=== PATIENT | female | born 1940 | race Caucasian/White ===

== ENCOUNTER 2023-10-01 14:52 | Inpatient (IN) | payer MEDICARE, OTHER ==
[~2023-10-01] VITALS: Ht 157.5 cm; Wt 95.7 kg
[2023-10-01 16:26] LABS: BASOPHILS % (AUTO) 0.5 % (0.0-2.0); EOSINOPHILS % (AUTO) 0.3 % (0.0-7.0); HEMOGLOBIN 14.5 g/dL (10.9-14.3); LYMPHOCYTES # (AUTO) 0.6 K/uL (0.8-4.8); LYMPHOCYTES % (AUTO) 6.8 % (20.5-51.5); MEAN CORPUSCULAR HEMOGLOBIN 30.2 uug (24.7-32.8); MEAN CORPUSCULAR HGB CONC 32 g/dL (32.3-35.6); MEAN CORPUSCULAR VOLUME 94.1 fL (75.5-95.3); MONOCYTES # (AUTO) 0.3 K/uL (0.1-1.30); MONOCYTES % (AUTO) 3.9 % (0.0-11.0); NEUTROPHILS # (AUTO) 7.6 K/uL (1.8-8.9); NEUTROPHILS % (AUTO) 88.5 % (38.5-71.5); PLATELET COUNT (AUTO) 133 K/uL (179-408); RED BLOOD CELL COUNT(AUTO) 4.78 MIL/uL (3.63-4.92); RED CELL DISTRIBUTION WIDTH 16.9 % (12.3-17.7); WHITE BLOOD COUNT (AUTO) 8.6 K/uL (3.8-11.8)
[2023-10-01 16:40] LABS: DIFFERENTIAL COMMENT 1
[2023-10-01 16:44] LABS: CALCIUM 9.2 mg/dL (8.5-10.1); CARBON DIOXIDE 28 mmol/L (21-32); CHLORIDE 104 mmol/L (98-107); CREATININE 1.6 mg/dL (0.6-1.3); GLUCOSE 275 mg/dL (74-106); POTASSIUM 4.3 mmol/L (3.5-5.1); SODIUM SERUM 143 mmol/L (136-145); UREA NITROGEN, BLOOD 33 mg/dL (7-18)
[2023-10-01 16:47] LABS: ABG BASE EXCESS 4.9 mmol/L (-2.0-2.0); ABG HCO3 30.1 mmol/L (22.0-26.0); ABG PCO2 45.9 mmHg (35.0-48.0); ABG PH 7.434 (7.340-7.440); ABG PO2 98.3 mmHg (75.0-100.0); ABG SITE RIGHT RADIAL; ABG TOTAL HEMOGLOBIN 15.3 G/dL (12.0-16.0); AaDO2 97.6 mmHg; COHb 0.8 % (0.0-3.9); MetHb 0.1 % (0.0-1.5); O2Hb 96.4 % (94.0-97.0)
[2023-10-01 16:52] LABS: *BILIRUBIN,URIN NEGATIVE (NEGATIVE); *CLARITY,URINE CLOUDY (CLEAR); *COLOR,URINE YELLOW (YELLOW); *KETONES,URINE NEGATIVE (NEGATIVE); *PROTEIN,URINE NEGATIVE (NEGATIVE); *UROBILINOGEN,URINE 0.2 E.U./dl (NORMAL); LEUKOCYTE ESTERASE ,URINE NEGATIVE (NEGATIVE); PH,URINE 5.5 (5.0-8.0)
[2023-10-01 16:52] LABS: ALANINE AMINOTRANSFERASE 78 U/L (14-59); ALKALINE PHOSPHATASE 70 U/L (50-136); ASPARTATE AMINOTRANSFERASE 21 U/L (15-37); BILIRUBIN,DIRECT 0.2 mg/dL (0.0-0.2); BILIRUBIN,TOTAL 0.3 mg/dL (0.2-1.0); LIPASE 45 U/L (16-77); TOTAL PROTEIN, SERUM 6.4 g/dL (6.4-8.2)
[2023-10-01 17:00] LABS: LACTIC ACID 2.1 mmol/L (0.4-2.0)
[2023-10-01 17:01] LABS: *BLOOD, URINE TRACE (NEGATIVE); NITRITE, URINE POSITIVE (NEGATIVE); UGLUCOSE 2+ (NEGATIVE)
[2023-10-01 17:14] LABS: BACTERIA,URINE MODERATE /HPF (NONE SEEN); SQUAMOUS EPITHELIAL CELL,UR FEW /HPF (NONE SEEN)
[2023-10-01] MEDS ORDERED: CEFTRIAXONE 1 G in IV DEXTROSE 5% 50 ML IV ONE (17:30)
[2023-10-01] MEDS ORDERED: CEFTRIAXONE /D5W 50ML IVPB **ER PYXIS IV ONE (17:48)
[2023-10-01] MEDS ORDERED: ONDANSETRON 4 MG/2 ML VIAL IV PRN (18:00)
[2023-10-01] MEDS ORDERED: DEXTROSE 50% 50 ML DISP.SYRIN IV PRN (18:00)
[2023-10-01] MEDS ORDERED: ACETAMINOPHEN 325 MG TABLET PO PRN (18:00)
[2023-10-01] MEDS: BLOOD SUGAR DIAGNOSTIC 1 EACH STRIP VI SCH (21:00)
[2023-10-01] MEDS ORDERED: HEPARIN SODIUM,PORCINE 5,000 UNITS/ML VIAL SQ SCH (21:00)
[2023-10-02 06:48] LABS: BASOPHILS % (AUTO) 0.4 % (0.0-2.0); EOSINOPHILS # (AUTO) 0.1 K/uL (0.0-0.7); EOSINOPHILS % (AUTO) 1.7 % (0.0-7.0); HEMATOCRIT 44.1 % (31.2-41.9); HEMOGLOBIN 14.5 g/dL (10.9-14.3); LYMPHOCYTES # (AUTO) 1.8 K/uL (0.8-4.8); LYMPHOCYTES % (AUTO) 20.6 % (20.5-51.5); MEAN CORPUSCULAR HEMOGLOBIN 30.8 uug (24.7-32.8); MEAN CORPUSCULAR HGB CONC 33 g/dL (32.3-35.6); MONOCYTES # (AUTO) 0.9 K/uL (0.1-1.30); MONOCYTES % (AUTO) 10.3 % (0.0-11.0); NEUTROPHILS # (AUTO) 5.7 K/uL (1.8-8.9); PLATELET COUNT (AUTO) 119 K/uL (179-408); RED BLOOD CELL COUNT(AUTO) 4.69 MIL/uL (3.63-4.92); RED CELL DISTRIBUTION WIDTH 16.7 % (12.3-17.7); WHITE BLOOD COUNT (AUTO) 8.6 K/uL (3.8-11.8)
[2023-10-02 06:55] LABS: CARBON DIOXIDE 30 mmol/L (21-32); CHLORIDE 107 mmol/L (98-107); CREATININE 1.4 mg/dL (0.6-1.3); GLUCOSE 123 mg/dL (74-106); MAGNESIUM 2.6 mg/dL (1.8-2.4); PHOSPHOROUS 3.7 mg/dL (2.5-4.9); POTASSIUM 3.8 mmol/L (3.5-5.1); SODIUM SERUM 146 mmol/L (136-145); UREA NITROGEN, BLOOD 37 mg/dL (7-18)
[2023-10-02 07:06] LABS: DIFFERENTIAL COMMENT 1
[2023-10-02] MEDS ORDERED: ALBU2.5V13 IH (10:10)
[2023-10-02] MEDS ORDERED: ARIP5TAB10 PO (10:10)
[2023-10-02] MEDS ORDERED: DICL75TA5 PO ×2 (10:12→16:47)
[2023-10-02] MEDS ORDERED: DOCU-141 PO (10:12)
[2023-10-02] MEDS ORDERED: DULO60CA45 PO (11:00)
[2023-10-02] MEDS ORDERED: PRED20TA PO (11:00)
[2023-10-02] MEDS ORDERED: OMEP40CA21 PO (11:00)
[2023-10-02] MEDS ORDERED: FURO-151 PO (11:00)
[2023-10-02] MEDS ORDERED: SOLI10TA2 PO (11:00)
[2023-10-02] MEDS ORDERED: FERR-68 PO (11:00)
[2023-10-02] MEDS ORDERED: PANT40TA49 PO (11:00)
[2023-10-02] MEDS ORDERED: ALBU18HF2 IH (11:00)
[2023-10-02] MEDS ORDERED: ONDA4TAB5 PO (11:00)
[2023-10-02] MEDS ORDERED: LINA5TAB PO (11:00)
[2023-10-02] MEDS ORDERED: IPRA0.2S48 NEB (11:00)
[2023-10-02] MEDS ORDERED: APIX5TAB PO (11:00)
[2023-10-02] MEDS ORDERED: BUDE10.2 IH (11:00)
[2023-10-02] MEDS ORDERED: POTA-194 PO (11:00)
[2023-10-02] MEDS ORDERED: EMPA10TA PO (11:00)
[2023-10-02] MEDS ORDERED: GABA-532 PO (11:00)
[2023-10-02] MEDS ORDERED: ZOLP10TA2 PO (11:01)
[2023-10-02 11:30] VITALS: BP 121/79; TEMP 98.1; O2SAT 98
[2023-10-02] MEDS: BLOOD SUGAR DIAGNOSTIC 1 EACH STRIP VI SCH ×4 (11:30→21:10)
[2023-10-02] MEDS: PANTOPRAZOLE SODIUM 40 MG TABLET.DR PO SCH (11:49)
[2023-10-02] MEDS: methylPREDNISolone SOD SUCC 40 MG/ML VIAL IV SCH ×3 (11:49→21:10)
[2023-10-02] MEDS: INSULIN REGULAR, HUMAN 300 UNIT/3 ML VIAL SQ PRN ×3 (12:16→21:09)
[2023-10-02 15:51] VITALS: BP 113/95; TEMP 97.7; O2SAT 98
[2023-10-02] MEDS: ALBUTEROL SULFATE 2.5 MG/3 ML NEBU NEB SCH ×2 (16:30→19:45)
[2023-10-02] MEDS: IPRATROPIUM BROMIDE 0.5 MG/2.5 ML NEBU NEB SCH ×2 (16:30→19:44)
[2023-10-02] MEDS ORDERED: GUAI100S9 PO (16:53)
[2023-10-02] MEDS: DOCUSATE SODIUM 100 MG CAPSULE PO SCH (18:06)
[2023-10-02] MEDS: GABAPENTIN 100 MG CAPSULE PO SCH (18:06)
[2023-10-02 19:44] VITALS: O2SAT 96
[2023-10-02 19:54] VITALS: O2SAT 98
[2023-10-02 20:00] VITALS: BP 119/57; TEMP 98; O2SAT 95
[2023-10-02] MEDS ORDERED: CEFTRIAXONE 1 G in IV DEXTROSE 5% 50 ML IV SCH (21:00)
[2023-10-02] MEDS: DOXYCYCLINE HYCLATE 100 MG TABLET PO SCH (21:09)
[2023-10-03] VITALS (11 sets, daily range): BP systolic 94–133; BP diastolic 57–77; TEMP 97–98.6; O2SAT 95–99
[2023-10-03] MEDS: BLOOD SUGAR DIAGNOSTIC 1 EACH STRIP VI SCH ×4 (06:35→20:40)
[2023-10-03] MEDS: PANTOPRAZOLE SODIUM 40 MG TABLET.DR PO SCH (06:35)
[2023-10-03] MEDS: methylPREDNISolone SOD SUCC 40 MG/ML VIAL IV SCH ×3 (06:35→22:52)
[2023-10-03 07:31] LABS: BASOPHILS # (AUTO) 0.1 K/UL (0.0-0.2); BASOPHILS % (AUTO) 0.6 % (0.0-2.0); HEMATOCRIT 43.4 % (31.2-41.9); HEMOGLOBIN 14.4 g/dL (10.9-14.3); LYMPHOCYTES # (AUTO) 0.8 K/uL (0.8-4.8); LYMPHOCYTES % (AUTO) 7.3 % (20.5-51.5); MEAN CORPUSCULAR HEMOGLOBIN 30.8 uug (24.7-32.8); MEAN CORPUSCULAR HGB CONC 33 g/dL (32.3-35.6); MEAN CORPUSCULAR VOLUME 92.7 fL (75.5-95.3); MONOCYTES # (AUTO) 0.2 K/uL (0.1-1.30); MONOCYTES % (AUTO) 2.3 % (0.0-11.0); NEUTROPHILS # (AUTO) 9.7 K/uL (1.8-8.9); NEUTROPHILS % (AUTO) 89.8 % (38.5-71.5); PLATELET COUNT (AUTO) 124 K/uL (179-408); RED BLOOD CELL COUNT(AUTO) 4.68 MIL/uL (3.63-4.92); RED CELL DISTRIBUTION WIDTH 16.7 % (12.3-17.7); WHITE BLOOD COUNT (AUTO) 10.8 K/uL (3.8-11.8)
[2023-10-03 07:47] LABS: DIFFERENTIAL COMMENT 1
[2023-10-03 07:52] LABS: CALCIUM 8.7 mg/dL (8.5-10.1); CARBON DIOXIDE 27 mmol/L (21-32); CHLORIDE 106 mmol/L (98-107); CREATININE 1.3 mg/dL (0.6-1.3); GLUCOSE 182 mg/dL (74-106); MAGNESIUM 2.5 mg/dL (1.8-2.4); PHOSPHOROUS 3.8 mg/dL (2.5-4.9); SODIUM SERUM 141 mmol/L (136-145); UREA NITROGEN, BLOOD 33 mg/dL (7-18)
[2023-10-03] MEDS: ALBUTEROL SULFATE 2.5 MG/3 ML NEBU NEB SCH ×3 (08:06→21:44)
[2023-10-03] MEDS: IPRATROPIUM BROMIDE 0.5 MG/2.5 ML NEBU NEB SCH ×3 (08:06→21:43)
[2023-10-03] MEDS: DULOXETINE 60 MG CAPSULE.DR PO SCH (09:00)
[2023-10-03] MEDS: LINAGLIPTIN 5 MG TABLET PO SCH (09:00)
[2023-10-03] MEDS: DOCUSATE SODIUM 100 MG CAPSULE PO SCH ×2 (09:00→16:55)
[2023-10-03] MEDS: GABAPENTIN 100 MG CAPSULE PO SCH ×3 (09:00→16:55)
[2023-10-03] MEDS: DOXYCYCLINE HYCLATE 100 MG TABLET PO SCH ×2 (09:00→20:40)
[2023-10-03] MEDS: ARIPIPRAZOLE 5 MG TABLET PO SCH (09:01)
[2023-10-03] MEDS: FERROUS SULFATE 325 MG TABEC PO SCH (09:01)
[2023-10-03] MEDS: INSULIN REGULAR, HUMAN 300 UNIT/3 ML VIAL SQ PRN ×4 (09:13→20:49)
[2023-10-03] MEDS ORDERED: REMEDY ESSENTIAL ZINC PASTE 113 GM TOP PRN (10:30)
[2023-10-03] MEDS: IV 1/2NS 1000 ML 1,000 ML IV PRN (16:52)
[2023-10-03] MEDS: REMEDY ESSENTIAL ZINC PASTE 113 GM TOP SCH (20:40)
[2023-10-04] VITALS (11 sets, daily range): BP systolic 102–127; BP diastolic 59–82; TEMP 97.8–99.2; O2SAT 96–99
[2023-10-04] MEDS: PANTOPRAZOLE SODIUM 40 MG TABLET.DR PO SCH (06:37)
[2023-10-04] MEDS: methylPREDNISolone SOD SUCC 40 MG/ML VIAL IV SCH ×2 (06:37→20:24)
[2023-10-04 07:07] LABS: BASOPHILS % (AUTO) 0.1 % (0.0-2.0); HEMATOCRIT 41.8 % (31.2-41.9); HEMOGLOBIN 13.6 g/dL (10.9-14.3); LYMPHOCYTES # (AUTO) 0.6 K/uL (0.8-4.8); LYMPHOCYTES % (AUTO) 4.4 % (20.5-51.5); MEAN CORPUSCULAR HEMOGLOBIN 30.4 uug (24.7-32.8); MEAN CORPUSCULAR HGB CONC 33 g/dL (32.3-35.6); MEAN CORPUSCULAR VOLUME 93.7 fL (75.5-95.3); MONOCYTES # (AUTO) 0.5 K/uL (0.1-1.30); MONOCYTES % (AUTO) 3.9 % (0.0-11.0); NEUTROPHILS # (AUTO) 12.1 K/uL (1.8-8.9); NEUTROPHILS % (AUTO) 91.6 % (38.5-71.5); PLATELET COUNT (AUTO) 123 K/uL (179-408); RED BLOOD CELL COUNT(AUTO) 4.45 MIL/uL (3.63-4.92); RED CELL DISTRIBUTION WIDTH 16.2 % (12.3-17.7); WHITE BLOOD COUNT (AUTO) 13.2 K/uL (3.8-11.8)
[2023-10-04 07:22] LABS: DIFFERENTIAL COMMENT 1
[2023-10-04] MEDS: IPRATROPIUM BROMIDE 0.5 MG/2.5 ML NEBU NEB SCH ×3 (07:31→21:24)
[2023-10-04] MEDS: ALBUTEROL SULFATE 2.5 MG/3 ML NEBU NEB SCH ×3 (07:31→21:25)
[2023-10-04 07:34] LABS: CALCIUM 8.7 mg/dL (8.5-10.1); CARBON DIOXIDE 26 mmol/L (21-32); CHLORIDE 108 mmol/L (98-107); CREATININE 1.3 mg/dL (0.6-1.3); GLUCOSE 220 mg/dL (74-106); MAGNESIUM 2.3 mg/dL (1.8-2.4); PHOSPHOROUS 3.9 mg/dL (2.5-4.9); POTASSIUM 3.7 mmol/L (3.5-5.1); SODIUM SERUM 144 mmol/L (136-145); UREA NITROGEN, BLOOD 33 mg/dL (7-18)
[2023-10-04] MEDS: BLOOD SUGAR DIAGNOSTIC 1 EACH STRIP VI SCH ×4 (08:28→21:15)
[2023-10-04] MEDS: GABAPENTIN 100 MG CAPSULE PO SCH ×3 (08:29→17:45)
[2023-10-04] MEDS: ARIPIPRAZOLE 5 MG TABLET PO SCH (08:29)
[2023-10-04] MEDS: DOCUSATE SODIUM 100 MG CAPSULE PO SCH ×2 (08:29→17:45)
[2023-10-04] MEDS: DOXYCYCLINE HYCLATE 100 MG TABLET PO SCH ×2 (08:30→20:24)
[2023-10-04] MEDS: DULOXETINE 60 MG CAPSULE.DR PO SCH (08:30)
[2023-10-04] MEDS: FERROUS SULFATE 325 MG TABEC PO SCH (08:30)
[2023-10-04] MEDS: LINAGLIPTIN 5 MG TABLET PO SCH (08:30)
[2023-10-04] MEDS: INSULIN REGULAR, HUMAN 300 UNIT/3 ML VIAL SQ PRN ×4 (08:31→21:16)
[2023-10-04] MEDS: REMEDY ESSENTIAL ZINC PASTE 113 GM TOP SCH ×2 (09:09→21:15)
[2023-10-04] MEDS: HEPARIN SODIUM,PORCINE 5,000 UNITS/ML VIAL SQ SCH (20:32)
[2023-10-05] VITALS (11 sets, daily range): BP systolic 109–123; BP diastolic 56–63; TEMP 97.6–98.4; O2SAT 95–100
[2023-10-05] MEDS: IV 1/2NS 1000 ML 1,000 ML IV PRN (04:46)
[2023-10-05] MEDS: BLOOD SUGAR DIAGNOSTIC 1 EACH STRIP VI SCH ×4 (06:34→21:14)
[2023-10-05] MEDS: PANTOPRAZOLE SODIUM 40 MG TABLET.DR PO SCH (06:34)
[2023-10-05 07:14] LABS: BASOPHILS % (AUTO) 0.4 % (0.0-2.0); EOSINOPHILS # (AUTO) 0.1 K/uL (0.0-0.7); HEMATOCRIT 41.1 % (31.2-41.9); HEMOGLOBIN 13.4 g/dL (10.9-14.3); LYMPHOCYTES # (AUTO) 0.9 K/uL (0.8-4.8); LYMPHOCYTES % (AUTO) 7.3 % (20.5-51.5); MEAN CORPUSCULAR HEMOGLOBIN 30.5 uug (24.7-32.8); MEAN CORPUSCULAR HGB CONC 33 g/dL (32.3-35.6); MEAN CORPUSCULAR VOLUME 93.7 fL (75.5-95.3); MONOCYTES # (AUTO) 0.5 K/uL (0.1-1.30); MONOCYTES % (AUTO) 3.9 % (0.0-11.0); NEUTROPHILS # (AUTO) 11.1 K/uL (1.8-8.9); NEUTROPHILS % (AUTO) 87.4 % (38.5-71.5); PLATELET COUNT (AUTO) 117 K/uL (179-408); RED BLOOD CELL COUNT(AUTO) 4.39 MIL/uL (3.63-4.92); RED CELL DISTRIBUTION WIDTH 16.3 % (12.3-17.7); WHITE BLOOD COUNT (AUTO) 12.6 K/uL (3.8-11.8)
[2023-10-05 07:28] LABS: CALCIUM 8.6 mg/dL (8.5-10.1); CARBON DIOXIDE 25 mmol/L (21-32); CHLORIDE 108 mmol/L (98-107); CREATININE 1.2 mg/dL (0.6-1.3); GLUCOSE 183 mg/dL (74-106); MAGNESIUM 2.2 mg/dL (1.8-2.4); PHOSPHOROUS 3.8 mg/dL (2.5-4.9); SODIUM SERUM 142 mmol/L (136-145); UREA NITROGEN, BLOOD 32 mg/dL (7-18)
[2023-10-05 07:30] LABS: POTASSIUM 3.9 mmol/L (3.5-5.1)
[2023-10-05 07:33] LABS: DIFFERENTIAL COMMENT 1
[2023-10-05] MEDS: ALBUTEROL SULFATE 2.5 MG/3 ML NEBU NEB SCH ×3 (08:05→21:39)
[2023-10-05] MEDS: IPRATROPIUM BROMIDE 0.5 MG/2.5 ML NEBU NEB SCH ×3 (08:05→21:38)
[2023-10-05] MEDS: FERROUS SULFATE 325 MG TABEC PO SCH (09:33)
[2023-10-05] MEDS: DOXYCYCLINE HYCLATE 100 MG TABLET PO SCH (09:33)
[2023-10-05] MEDS: DULOXETINE 60 MG CAPSULE.DR PO SCH (09:33)
[2023-10-05] MEDS: DOCUSATE SODIUM 100 MG CAPSULE PO SCH ×2 (09:33→17:00)
[2023-10-05] MEDS: GABAPENTIN 100 MG CAPSULE PO SCH ×3 (09:33→17:00)
[2023-10-05] MEDS: methylPREDNISolone SOD SUCC 40 MG/ML VIAL IV SCH ×2 (09:33→21:13)
[2023-10-05] MEDS: ARIPIPRAZOLE 5 MG TABLET PO SCH (09:33)
[2023-10-05] MEDS: LINAGLIPTIN 5 MG TABLET PO SCH (09:34)
[2023-10-05] MEDS: HEPARIN SODIUM,PORCINE 5,000 UNITS/ML VIAL SQ SCH ×2 (09:35→21:14)
[2023-10-05] MEDS: REMEDY ESSENTIAL ZINC PASTE 113 GM TOP SCH ×2 (09:35→21:14)
[2023-10-05] MEDS: INSULIN REGULAR, HUMAN 300 UNIT/3 ML VIAL SQ PRN ×4 (09:49→21:29)
[2023-10-05] MEDS: CEFTRIAXONE 1 G in IV DEXTROSE 5% 50 ML IV SCH (10:43)
[2023-10-05 11:27] LABS: PROTEIN, BODY FLUID 0.9 G/DL
[2023-10-05 11:29] LABS: TOTAL VOLUME,BODY FLUID 1000 mL; WBC, BODY FLUID 15 /cu. mm (0-200/cu.mm)
[2023-10-05 12:48] LABS: MONOCYTES,BODY FLUID 6 %; POLYNUCLEAR, BODY FLUID 16 % (0-25 %)
[2023-10-06] VITALS (7 sets, daily range): BP systolic 114–127; BP diastolic 59–68; TEMP 98–98.2; O2SAT 95–99
[2023-10-06] MEDS: PANTOPRAZOLE SODIUM 40 MG TABLET.DR PO SCH (06:29)
[2023-10-06] MEDS: BLOOD SUGAR DIAGNOSTIC 1 EACH STRIP VI SCH ×3 (06:36→17:02)
[2023-10-06] MEDS: ALBUTEROL SULFATE 2.5 MG/3 ML NEBU NEB SCH ×2 (07:35→14:18)
[2023-10-06] MEDS: IPRATROPIUM BROMIDE 0.5 MG/2.5 ML NEBU NEB SCH ×2 (07:35→14:18)
[2023-10-06 08:28] LABS: BASOPHILS % (AUTO) 0.2 % (0.0-2.0); HEMATOCRIT 40.9 % (31.2-41.9); HEMOGLOBIN 13.2 g/dL (10.9-14.3); LYMPHOCYTES # (AUTO) 0.7 K/uL (0.8-4.8); LYMPHOCYTES % (AUTO) 7.6 % (20.5-51.5); MEAN CORPUSCULAR HEMOGLOBIN 30.2 uug (24.7-32.8); MEAN CORPUSCULAR HGB CONC 32 g/dL (32.3-35.6); MEAN CORPUSCULAR VOLUME 93.4 fL (75.5-95.3); MONOCYTES # (AUTO) 0.5 K/uL (0.1-1.30); MONOCYTES % (AUTO) 5.3 % (0.0-11.0); NEUTROPHILS # (AUTO) 8.4 K/uL (1.8-8.9); NEUTROPHILS % (AUTO) 86.9 % (38.5-71.5); PLATELET COUNT (AUTO) 98 K/uL (179-408); RED BLOOD CELL COUNT(AUTO) 4.38 MIL/uL (3.63-4.92); RED CELL DISTRIBUTION WIDTH 16.8 % (12.3-17.7); WHITE BLOOD COUNT (AUTO) 9.6 K/uL (3.8-11.8)
[2023-10-06 08:44] LABS: DIFFERENTIAL COMMENT 1
[2023-10-06] MEDS ORDERED: MAG HYDROX/AL HYDROX/SIMETH 30 ML LIQUID UDC PO PRN ×2 (08:45)
[2023-10-06] MEDS ORDERED: MIRALAX 17 GM POWD.PACK PO SCH (09:00)
[2023-10-06] MEDS ORDERED: methylPREDNISolone SOD SUCC 40 MG/ML VIAL IV SCH (09:00)
[2023-10-06] MEDS: LINAGLIPTIN 5 MG TABLET PO SCH (09:06)
[2023-10-06] MEDS: FERROUS SULFATE 325 MG TABEC PO SCH (09:06)
[2023-10-06] MEDS: ARIPIPRAZOLE 5 MG TABLET PO SCH (09:06)
[2023-10-06] MEDS: DULOXETINE 60 MG CAPSULE.DR PO SCH (09:07)
[2023-10-06] MEDS: DOCUSATE SODIUM 100 MG CAPSULE PO SCH ×2 (09:07→17:00)
[2023-10-06] MEDS: GABAPENTIN 100 MG CAPSULE PO SCH ×3 (09:07→17:00)
[2023-10-06] MEDS: HEPARIN SODIUM,PORCINE 5,000 UNITS/ML VIAL SQ SCH (09:15)
[2023-10-06] MEDS: REMEDY ESSENTIAL ZINC PASTE 113 GM TOP SCH (09:16)
[2023-10-06] MEDS: INSULIN REGULAR, HUMAN 300 UNIT/3 ML VIAL SQ PRN ×2 (09:19→12:19)
[2023-10-06 09:52] LABS: CHLORIDE 107 mmol/L (98-107); CREATININE 1.3 mg/dL (0.6-1.3); POTASSIUM 3.9 mmol/L (3.5-5.1); SODIUM SERUM 141 mmol/L (136-145); UREA NITROGEN, BLOOD 34 mg/dL (7-18)
[2023-10-06 09:53] LABS: GLUCOSE 162 mg/dL (74-106); MAGNESIUM 2.3 mg/dL (1.8-2.4)
[2023-10-06 09:59] LABS: CALCIUM 8.4 mg/dL (8.5-10.1); CARBON DIOXIDE 23 mmol/L (21-32)
[2023-10-06] MEDS: CEFTRIAXONE 1 G in IV DEXTROSE 5% 50 ML IV SCH (11:18)
[2023-10-06] MEDS ORDERED: CEPH500T PO (15:10)
[2023-10-06] MEDS ORDERED: PRED20TA PO (15:10)
[2023-10-06] MEDS ORDERED: FUROSEMIDE 20 MG/2 ML VIAL IV ONE (15:15)
== END 2023-10-06 18:00 | DRG 690 ==
LOC: ER 14:52 → MEDSURG3 18:00
PROVIDERS: ADMIT Nurse Practitioner Family; ATTEND Nurse Practitioner Family
PROC: 0W9930Z Drainage of Right Pleural Cavity with Drainage Device, Percutaneous Approach (ICD-10-PCS; principal; 2023-10-03)
DX: N39.0 Urinary tract infection, site not specified (principal); J44.1 Chronic obstructive pulmonary disease with (acute) exacerbation; E87.20 Acidosis, unspecified; I13.0 Hypertensive heart and chronic kidney disease with heart failure and stage 1 through stage 4 chronic kidney disease, or unspecified chronic kidney disease; N17.9 Acute kidney failure, unspecified; J96.11 Chronic respiratory failure with hypoxia; I50.32 Chronic diastolic (congestive) heart failure; J91.8 Pleural effusion in other conditions classified elsewhere; J98.11 Atelectasis; Z66 Do not resuscitate; B96.89 Other specified bacterial agents as the cause of diseases classified elsewhere; N18.9 Chronic kidney disease, unspecified; I48.91 Unspecified atrial fibrillation; E11.22 Type 2 diabetes mellitus with diabetic chronic kidney disease; E66.9 Obesity, unspecified; Z68.38 Body mass index [BMI] 38.0-38.9, adult; M19.90 Unspecified osteoarthritis, unspecified site; I87.2 Venous insufficiency (chronic) (peripheral); F20.9 Schizophrenia, unspecified; Z90.49 Acquired absence of other specified parts of digestive tract; R25.1 Tremor, unspecified; M85.80 Other specified disorders of bone density and structure, unspecified site; G89.29 Other chronic pain; E03.9 Hypothyroidism, unspecified; Z99.81 Dependence on supplemental oxygen; Z90.710 Acquired absence of both cervix and uterus; Z95.828 Presence of other vascular implants and grafts; Z88.0 Allergy status to penicillin; Z86.718 Personal history of other venous thrombosis and embolism; Z87.891 Personal history of nicotine dependence; Z85.42 Personal history of malignant neoplasm of other parts of uterus; Z79.01 Long term (current) use of anticoagulants; Z95.0 Presence of cardiac pacemaker
CPT/HCPCS: 32555; 36415; 36600; 70450; 71045; 76705; 76770; 82785; 82803; 83605; 83615; 83690; 83735; 83986; 84100; 84155; 84443; 84484; 85025; 85730; 88108-TC; 93005; 94640; 94760; A4606; A4663; G0378; J0696; J1644; J1815; J1940; J2920; J3590